=== PATIENT | female | born 1965 | race Caucasian/White ===

== ENCOUNTER → 2017-01-21 | Outpatient (CLI) | payer BC ==
--- NOTE | 2017-01-21 10:24 | WOMENS IMAGING REPORT ---
EXAM DESCRIPTION: BILAT SCREENING MAMMO W/CAD COMPLETED DATE/TIME: 01/21/2017 8:14 am REASON FOR STUDY: Z12.31, ROUTINE SCREENING MAMMO Z12.31 ENCNTR SCREEN MAMMOGRAM FOR MALIGNANT NEOP LASM OF ABIGAIL COMPARISON: Multiple since 2008 TECHNIQUE: Standard craniocaudal and mediolateral oblique views of each breast recorded using [employer] acquisition. LIMITATIONS: None. FINDINGS: Findings present which are benign by mammographic criteria. No suspicious masses, calcifi cations or architectural distortion. Pertinent benign findings: Right breast upper outer quadrant stereotactic biopsy clip. Few scattered benign-appearing right breast calcifications. Read with the assistance of CAD. .[facility] - R2 Cenova Version 1.3 .[facility] Imaging - R2 Cenova Version 1.3 .[facility] - R2 Cenova Version 2.4 .[facility] [place] R2 Cenova Version 2.4 .[facility] - R2 [employer] Version 9.2 Benign mammographic findings may include one or more of the following: Smooth masses, popcorn/rim/co arse calcifications, asymmetries, post-procedure changes, and lesions with long-standing stability. IMPRESSION: BENIGN MAMMOGRAPHIC FINDINGS. BIRADS 2 BREAST DENSITY: c. The breasts are heterogeneously dense, which may obscure small masses. BIRAD: 2 BENIGN FINDING(S) RECOMMENDATION: ROUTINE SCREENING COMMENT: The patient has been notified of the results by letter per SA requirements. Additional no tification policies are in place for contacting patient with suspicious or incomplete findings. Quality ID #[id number]: The [employer] recommends an annual screening mammogram for women aged 40 years or over. This facility utilizes a reminder system to ensure that all patients receive reminder letters, and/or direct phone calls for appointments. This includes reminders for routine scr eening mammograms, diagnostic mammograms, or other Breast Imaging Interventions when appropriate. Th is patient will be placed in the appropriate reminder system. The [employer] (ACR) has developed recommendations for screening MRI of the breast s in certain patient populations, to be used in conjunction with mammography. Breast MRI surveillanc e may be appropriate for women with more than 20% lifetime risk of developing breast cancer as deter mined by genetic testing, significant family history of the disease, or history of mantle radiation f or Hodgkins Disease. ACR Practice Guidelines 2008. TECHNICAL DOCUMENTATION: FINDING NUMBER: (1) ASSESSMENT: (1) JOB ID: [id number] [employer]- All Rights Reserved
== END ==
LOC: WI 07:29
PROVIDERS: ATTEND Nurse Practitioner Primary Care
DX: Z12.31 Encounter for screening mammogram for malignant neoplasm of breast (principal)
CPT/HCPCS: 77067; G0202

== ENCOUNTER 2018-11-06 08:42 | Day surgery (SDC) | payer OTHER ==
[~2018-11-06 08:42] MED LIST: PROPOFOL INJ 200 MG/20 ML VIAL IV ONE
[2018-11-06 11:02] VITALS: BP 115/70
--- NOTE | 2018-11-06 11:35 | Operative Report ---
Operative Report DATE OF SURGERY: 11/06/18 Operative Report: The risks, benefits and alternatives of the procedure including the risk of bleeding, perforation requiring surgery have been explained to the patient in detail and informed consent is obtained. Patient is brought back to the endoscopy suite and placed in a left, lateral decubital position. Timeout was called. Propofol medication is administered. A rectal examination is done which did not reveal any masses, tears or fissures. An Olympus videoscope was introduced into the patient's rectum. The scope was then carefully advanced all the way to the cecum. Cecum was identified by the usual anatomical landmarks including the ileocecal valve as well as appendiceal office. Photodocumentation is obtained. The scope was then sequentially pulled back via the various segments of the colon including the ascending colon, hepatic flexure, transverse colon, splenic flexure, descending colon and finally into the rectosigmoid portions of the colon. Retroflexion maneuver was performed. The risks benefits and alternatives of the procedure explained to the patient in detail and informed consent is obtained.A GIF Olympus video scope was inserted into the patient's mouth and hypopharynx, the esophagus is identified intubated and insufflated, the scope was then advanced through the esophagus stomach and duodenum, retroflexion maneuver is done ,the esophagus stomach and first and second portions of the duodenum examined. PREOPERATIVE DIAGNOSIS: Change in bowel habits. There was some labs that could have been indicated for possible Crohn's disease. Dyspepsia POSTOPERATIVE DIAGNOSIS: Normal terminal ileum but random biopsies are taken to rule out for Crohn's disease. Sigmoid polyp that was removed via snare polypectomy, no tissue retrieved that was ablated in situ. Internal hemorrhoids. Gastritis status post biopsy rule out Helicobacter pylori. Duodenitis OPERATION: Colonoscopy with snare polypectomy. Colonoscopy with biopsy. EGD with biopsy SURGEON: UBALDO LAWSON ANESTHESIA: LMAC TISSUE REMOVED OR ALTERED: As noted above. COMPLICATIONS: None. ESTIMATED BLOOD LOSS: None. INTRAOPERATIVE FINDINGS: As noted above. PROCEDURE: Patient tolerated the procedure well. No immediate postprocedure complications are noted. Patient discharged in good condition. Discharge date 11/06/2018. Discharge diet: Regular. Discharge activity: Regular. 2-3-week follow-up to discuss findings. Patient is instructed to call the office or proceed to the emergency room should there be any further proximal questions. 3-5-year surveillance colonoscopy. Wait on the pathology. I do not believe that the patient does have Crohn's disease.
== END 2018-11-06 10:56 | disposition home or self-care (01) ==
LOC: OROUT 08:42
PROVIDERS: ATTEND Internal Medicine Gastroenterology
DX: D12.5 Benign neoplasm of sigmoid colon (principal); K64.8 Other hemorrhoids; Z86.010 Personal history of colon polyps; K29.50 Unspecified chronic gastritis without bleeding; K29.80 Duodenitis without bleeding; F17.210 Nicotine dependence, cigarettes, uncomplicated
CPT/HCPCS: 43239; 45380; 45388; 88305 ×2; J2704; 813

== ENCOUNTER 2019-07-14 21:44 | Emergency (ER) | payer OTHER ==
[2019-07-14] MEDS ORDERED: OXYMETAZOLINE HCL 0.05% NASAL SPRAY 15 ML BOTTLE NASL ONE (22:20)
[2019-07-14] MEDS ORDERED: AMOXICILLIN TR/POT CLAVULANATE 500-125 MG TAB PO ONE (22:21)
--- NOTE | 2019-07-14 22:23 | ER Document Report ---
HPI - HPI Time Seen by Provider: 07/14/19 22:05 Pain Level: Denies Context: Patient is a 53-year-old female who presents to emergency department with a chief complaint of nosebleed. Patient reports she has had a sinus pressure specifically in the frontal sinuses for the past few weeks. Patient reports multiple times per year she does get sinus infections. Patient reports she does have seasonal allergies and when she does take Claritin daily. Patient reports Friday night she woke up and had a nosebleed in which she needed to use 3 tissues. Patient reports she developed another nosebleed around 430 this afternoon. Patient reports this lasted about 20 minutes. Patient reports she did fill out large clots from her right nare. Patient denies injury or fall. Patient denies fever, sore throat. Patient denies use of blood thinners. Patient reports she has been sleeping in an RV recently with a propane heater and reports that the area is very dry. - EENT EENT: DENIES: Sore Throat, Ear Pain - NEURO Neurology: REPORTS: Headache. DENIES: Weakness, Vision blurred, Dizzinesss / Vertigo - CARDIOVASCULAR Cardiovascular: DENIES: Chest pain - RESPIRATORY Respiratory: REPORTS: Coughing. DENIES: Trouble Breathing - GASTROINTESTINAL Gastrointestinal: DENIES: Abdominal Pain, Black / Bloody Stools Past Medical History - General Information source: Patient - Social History Smoking Status: Unknown if Ever Smoked Lives with: Family Family History: None Patient has suicidal ideation: No Patient has homicidal ideation: No - Past Medical History Cardiac Medical History: Reports: None Denies: Hx Coronary Artery Disease, Hx Heart Attack, Hx Hypertension Pulmonary Medical History: Reports: None Denies: Hx Asthma, Hx Bronchitis, Hx COPD, Hx Pneumonia EENT Medical History: Reports: None Neurological Medical History: Reports: None. Denies: Hx Cerebrovascular Accident, Hx Seizures Endocrine Medical History: Reports: None Renal/ Medical History: Reports: None Malignancy Medical History: Reports: None GI Medical History: Reports: None Musculoskeletal Medical History: Reports None, Denies Hx Arthritis Skin Medical History: Reports None Psychiatric Medical History: Reports: None Traumatic Medical History: Reports: None Infectious Medical History: Reports: None Surgical Hx: Negative Past Surgical History: Denies: Hx Hysterectomy - Immunizations Hx Diphtheria, Pertussis, Tetanus Vaccination: No Hx Pneumococcal Vaccination: 06/01/15 Vertical Provider Document - CONSTITUTIONAL Agree With Documented VS: Yes Exam Limitations: No Limitations General Appearance: No Apparent Distress - INFECTION CONTROL TRAVEL OUTSIDE OF THE [place] IN LAST 30 DAYS: No - HEENT HEENT: Atraumatic, Normocephalic, PERRLA Notes: Dried blood noted within the right nare. Patient does have a bilateral erythematous and edematous turbinates. Sinus pressure with palpation noted to the frontal sinuses. Minimal maxillary sinus tenderness. - NECK Neck: Normal Inspection Notes: No cervical lymphadenopathy noted. - RESPIRATORY Respiratory: Breath Sounds Normal, No Respiratory Distress - CARDIOVASCULAR Cardiovascular: Regular Rate, Regular Rhythm - GI/ABDOMEN Gastrointestinal: Abdomen Soft, Abdomen Non-Tender, Normal Bowel Sounds - BACK Back: Normal Inspection - MUSCULOSKELETAL/EXTREMETIES Musculoskeletal/Extremeties: FROM, Non-Tender - NEURO Level of Consciousness: Awake, Alert, Appropriate - DERM Integumentary: Warm, Dry, No Rash Course - Re-evaluation Re-evalutation: 07/14/19 23:26 Patient has been asymptomatic and nosebleed free since being in the emergency department. I did inform the patient that her symptoms could be related to the sinusitis as well as the dry air in the RV. Patient given instructions to humidify the air as this may help as well as to continue her anti-allergy medication. Patient verbalizes understanding. We will treat her for sinusitis. - Vital Signs Vital signs: Temp Pulse Resp BP Pulse Ox 97.9 F 98 16 159/71 H 98 07/14/19 21:48 07/14/19 21:48 07/14/19 21:48 07/14/19 21:48 07/14/19 21:48 Discharge - Discharge Clinical Impression: Bleeding nose Sinus infection Qualifiers: Sinusitis location: unspecified location Chronicity: acute Recurrence: not specified as recurrent Qualified Code(s): J01.90 - Acute sinusitis, unspecified Condition: Stable Disposition: HOME, SELF-CARE Additional Instructions: Sinusitis You have sinusitis, an infection of the sinus cavities of the face. The sinuses are air-filled chambers which open into the inside of the nose. Bacteria and pus fill a sinus, causing pain, drainage, and fever. Sinusitis is treated with antibiotics. Often, expectorants (to thin the sinus mucous) or decongestants (to reduce swelling) are prescribed as well. Healing requires seven to 10 days. Avoid chemical fumes, pollens, dusts, and smoke (especially cigarette smoke). Keep the air humidified in your bedroom and work area and take plenty of liquids by mouth. This condition can be serious if the infection spreads. If your symptoms worsen, or if you develop severe headache, high fever, stiff neck, or a rash, you must call the doctor or return for re-evaluation. *Today you are seen the emergency department for nosebleed. You have not had any nosebleeds since being here in the emergency department. Your symptoms are consistent with a sinusitis will be treated with oral antibiotics. You will be placed on these medications for 10 days. Please try to avoid chemical fumes, pollens, dust and smoke. I know that you are currently living in an RV that has dry air. Please try to keep the air humidified as this can help with your symptoms. Nosebleed Instructions There is a significant chance of re-bleeding following a nosebleed. Proper care makes this less likely. Do not touch the nose for 24 hours. Do not blow the nose forcefully for one week. After 24 hours, gently apply Vaseline ointment to both nostrils with the tip of a finger, three times a day, for one week. It's normal to have a bloody mucous discharge for a few days. If active bleeding recurs, blow all the blood from the nose, then sit quietly and pinch the nose as firmly as possible for 10 minutes. If this does not stop the bleeding, return for further care. If packing was left in the nose and it starts to come out of the nostril, either tuck it back in or cut it off. Don't pull it out. Return for recheck and removal of the packing when instructed. Persons with frequent nosebleeds should avoid aspirin (unless prescribed for another reason). Humidity in the bedroom, and petroleum jelly applied to the nostrils at night may help. Prescriptions: Amox Tr/Potassium Clavulanate [Augmentin 875-125 Tablet] 1 tab PO BID 10 Days #20 tablet Referrals: ADRIANNE JIMENEZ NP [Primary Care Provider] - Follow up as needed
[2019-07-14 23:27] VITALS: BP 140/73
== END 2019-07-14 23:27 | disposition home or self-care (01) ==
LOC: ER 21:44
DX: R04.0 Epistaxis (principal); J01.90 Acute sinusitis, unspecified; J30.2 Other seasonal allergic rhinitis; Z79.899 Other long term (current) drug therapy; R51 Headache
CPT/HCPCS: 99283; J3490

== ENCOUNTER → 2019-08-24 | Outpatient (CLI) | payer OTHER ==
--- NOTE | 2019-08-24 15:42 | RADIOLOGY REPORT (SQ) ---
EXAM DESCRIPTION: CT SINUSES FOR ENT COMPLETED DATE/TIME: 08/24/2019 7:31 am REASON FOR STUDY: RECURRENT EPISTAXIS (R04.0), NASAL SEPTAL SPUR (J34.89) R04.0 EPISTAXIS J34.89 O THER SPECIFIED DISORDERS OF NOSE AND NASAL SINUSES COMPARISON: None. TECHNIQUE: Noncontrast scanning through the paranasal sinuses using bone algorithm. Reconstructed MPR images reviewed. All images stored on PACS. All CT scanners at this facility use dose modulation, iterative reconstruction, and/or weight based d osing when appropriate to reduce radiation dose to as low as reasonably achievable (ALARA). [facility]: Dose Right [facility]: CareDose [facility]: Dose Right [facility]: Teradose 4D [facility]: [employer] RADIATION DOSE: 47mGy. LIMITATIONS: None. FINDINGS: Right sinuses and drainage pathways: Post-surgical changes: None. Frontal sinus: Opacified Frontoethmoidal Recess: Opacified Anterior Ethmoid Sinuses: Opacified Posterior Ethmoid Sinuses: Opacified Sphenoid Sinus: Opacified Sphenoethmoidal Recess: Opacified Maxillary Sinus: Opacified Ostiomeatal Complex: Opacified On the right side, there is a soft tissue low-density mass in the nasal cavity measuring 4 x 3 cm in size. This is expansile, and likely slow growing, causing expansion of the rightward nasal cavity, d emineralization of the bones of the ostiomeatal complex, middle turbinate, ethmoid septa, and bony ou tline of the sphenoid sinus. There is expansion of the right ethmoid air cells, with bulging of the ethmoid air cells into the med ial right orbit on axial images 81-89. This expansile right nasal cavity mass displaces the nasal septum to the left with pressure erosion t hrough the floor of the anterior cranial fossa on coronal images 80 through 99. There is expansion of the right sphenoid sinus with demineralization of the right sphenoid sinus wall into the middle cranial fossa and right carotid canal. These findings are best shown on axial image s 97-103 and coronal images 126-137. There is also expansion of the sphenoid sinus dorsally into the clivus with bony demineralization of the clivus on sagittal reconstruction image 132. These findings are worrisome for chronic sinonasal obstructive disease from polyps or expansile mucoc lars. Inverting papilloma/malignancy could not entirely be excluded. Extent of inflammatory sinus di sease extension from the sinuses into the orbits and cranium could be evaluated with postcontrast CT of the sinuses. Left Sinuses and Drainage Pathways: Post-Surgical Changes: None. Frontal Sinus: Normal. Frontoethmoidal Recess: Normal. Anterior Ethmoid Sinuses: Normal. Posterior Ethmoid Sinuses: Opacified. No expansion of bony margins of the posterior ethmoid air neil ls into the left orbit. Sphenoid Sinus: Opacified. Demineralization of the anterior and medial wall left sphenoid sinus. T he pterygoid recess left sphenoid sinus is opacified Sphenoethmoidal Recess: Opacified. Maxillary Sinus: Normal Ostiomeatal Complex: Normal Right Olfactory Fossa: Mass as above Left Olfactory Fossa: No polyps. Middle Turbinate Ghada Bullosa: No. Paradoxical Middle Turbinate: No. Atelectatic Uncinated Process: No. Frontal Iguliano Cell Type I: No. Frontal Giuliano Cell Type II: No. Interfrontal Sinus Septal Cell: None. Supra-Orbital Ethmoid: None. Frontal Bullar Cell: None. Suprabullar Bullar Cell: None. Sphenoethmoidal (Onodi) Cell: None. Pneumatization of the Anterior Clinoid Processes: No Hypoplastic Maxillary Sinus: None. Osteoneogenesis: None. Bone Dehiscence:None. Nasal Cavity: Normal. Nasal Septum: Demineralized and deviated to the left by a a right nasal mass Anatomic Variants: Right Vidian Canal: Normal. Left Vidian Canal: Normal. IMPRESSION: Markedly abnormal right sinonasal region as above. Recommend follow-up postcontrast morales ging of the sinuses TECHNICAL DOCUMENTATION: JOB ID: [id number] Quality ID # [id number]: Final reports with documentation of one or more dose reduction techniques (e.g., Au tomated exposure control, adjustment of the mA and/or kV according to patient size, use of iterative reconstruction technique) 2010 [employer]- All Rights Reserved Reading location - IP/workstation name: [email or web address]
== END ==
LOC: RAD 07:10
PROVIDERS: ATTEND Otolaryngology
DX: J34.89 Other specified disorders of nose and nasal sinuses (principal); R04.0 Epistaxis
CPT/HCPCS: 70486

== ENCOUNTER → 2020-06-20 | Outpatient (CLI) | payer OTHER ==
--- NOTE | 2020-06-20 11:14 | WOMENS IMAGING REPORT ---
EXAM DESCRIPTION: BONE DENSITY HIP/SPINE IMAGES COMPLETED DATE/TIME: 06/20/2020 10:07 am REASON FOR STUDY: E89.41 SYMPTOMATIC POSTPROCEDURAL OVARIAN FAILURE Z12.31 ENCNTR SCREEN MAMMOGRAM FOR MALIGNANT NEOPLASM OF ABIGAIL E89.41 SYMPTOMATIC POSTPROCEDURAL OVARIAN FAILURE Z78.0 ASYMPTOMATIC MENOPAUSAL STATE COMPARISON: None. TECHNIQUE: Dual-Energy X-ray Absorptiometry (DEXA) of the AP Spine and Hip. LIMITATIONS: None. FINDINGS: LUMBAR SPINE: The bone mineral density (BMD) measured from L1-L4 in the AP projection correlates with a T-score of 0.5, which is normal as defined by the World Health Organization. BMD Change vs Baseline: N/A HIP: The bone mineral density (BMD) measured in the left hip correlates with a T-score of -0.9, which is n ormal as defined by the World Health Organization. BMD Change vs Baseline: N/A 10 year Fracture Risk Assessment: Major Osteoporotic Fracture: Not available. Hip Fracture: Not available. IMPRESSION: 1. LUMBAR SPINE WHO CLASSIFICATION: NORMAL. 2. HIP WHO CLASSIFICATION: NORMAL. OVERALL ASSESSMENT: WHO CLASSIFICATION: NORMAL. COMMENT: The World Health Organization defines low BMD as follows: T-score: Normal: At or above -1.0 Osteopenia: Between -1.0 and -2.5 Osteoporosis: At or below -2.5 without fractures Established osteoporosis: At or below -2.5 with fractures In general, you may wish to consider: Diagnosis Treatment Follow-up DEXA Normal BMD Prevention 2-3 years Osteopenia Prevention/Therapy 1-2 years Osteoporosis Therapy Yearly TECHNICAL DOCUMENTATION: JOB ID: [id number] 2010 [employer]- All Rights Reserved Reading location - IP/workstation name: [email or web address]
--- NOTE | 2020-06-20 14:05 | WOMENS IMAGING REPORT ---
EXAM DESCRIPTION: BILAT SCREENING MAMMO W/CAD IMAGES COMPLETED DATE/TIME: 06/20/2020 10:20 am REASON FOR STUDY: Z12.31 ENCOUNTER FOR SCREENING MAMMOGRAM FOR MALIGNANT NEOPLASM OF BREAST Z12.31 ENCNTR SCREEN MAMMOGRAM FOR MALIGNANT NEOPLASM OF BAIGAIL E89.41 SYMPTOMATIC POSTPROCEDURAL OVARIAN FAIL URE Z78.0 ASYMPTOMATIC MENOPAUSAL STATE COMPARISON: Multiple since 2012 EXAM PARAMETERS: Standard craniocaudal and mediolateral oblique views of each breast recorded using digital acquisition. Read with the assistance of CAD. [facility] - [employer] Decision Support Analyst Version 9.2 LIMITATIONS: None. FINDINGS: Findings present which are benign by mammographic criteria. No suspicious masses, calcifi cations or architectural distortion. Pertinent benign findings: Stereotactic biopsy clip far right breast upper outer quadrant Benign mammographic findings may include one or more of the following: Smooth masses, popcorn/rim/co arse calcifications, asymmetries, post-procedure changes, and lesions with long-standing stability. IMPRESSION: BENIGN MAMMOGRAPHIC FINDINGS. BIRADS 2 BREAST DENSITY: b. There are scattered areas of fibroglandular density. BIRAD: ASSESSMENT: 2 BENIGN FINDING(S) RECOMMENDATION: ROUTINE SCREENING Please continue yearly bilateral screening mammography/tomosynthesis in June 2021 COMMENT: The patient has been notified of the results by letter per SA requirements. Additional no tification policies are in place for contacting patient with suspicious or incomplete findings. Quality ID #[id number]: The [employer] recommends an annual screening mammogram for women aged 40 years or over. This facility utilizes a reminder system to ensure that all patients receive reminder letters, and/or direct phone calls for appointments. This includes reminders for routine scr eening mammograms, diagnostic mammograms, or other Breast Imaging Interventions when appropriate. Th is patient will be placed in the appropriate reminder system. TECHNICAL DOCUMENTATION: FINDING NUMBER: (1) ASSESSMENT: (1) JOB ID: [id number] 2010 [id number]- All Rights Reserved Reading location - IP/workstation name: [email or web address]
== END ==
LOC: WI 09:37
PROVIDERS: ATTEND Nurse Practitioner Primary Care
DX: Z12.31 Encounter for screening mammogram for malignant neoplasm of breast (principal); E89.41 Symptomatic postprocedural ovarian failure; Z78.0 Asymptomatic menopausal state
CPT/HCPCS: 77067; 77080